=== PATIENT | male | born 1965 | race Caucasian/White ===

== ENCOUNTER 2017-07-01 15:20 | Emergency (ER) | payer BC ==
[~2017-07-01] VITALS: Ht 185.4 cm; Wt 108.9 kg
[2017-07-01 15:32] VITALS: BP_SYST 145
[2017-07-01] MEDS ORDERED: IBUPROFEN 800 MG TABLET PO ONE (16:00)
== END 2017-07-01 16:20 | disposition home or self-care (01) ==
LOC: SED 15:20
DX: S62.394A Other fracture of fourth metacarpal bone, right hand, initial encounter for closed fracture (principal); R03.0 Elevated blood-pressure reading, without diagnosis of hypertension; W22.8XXA Striking against or struck by other objects, initial encounter; Y93.89 Activity, other specified; Y92.89 Other specified places as the place of occurrence of the external cause; Y99.8 Other external cause status
CPT/HCPCS: 99284